=== PATIENT | female | born 1935 | race Caucasian/White ===

== ENCOUNTER 2016-02-16 10:23 | Inpatient (IN) | payer OTHER ==
[~2016-02-16] VITALS: Ht 154.9 cm; Wt 92.1 kg
--- NOTE | ~2016-02-16 | HC ---
[facility] [place] [address] CONSULTATION Name: CHAVEZ AHN Room #: 201-P [facility] IN M.R.#: [id number] Admission: 02/16/16 Attend Phys: Halie Moralez MD Discharge: 02/17/16 Date of : 39 Report #: [id number] THIS REPORT FOR: //name// CC: Halie Osborn DATE OF SERVICE: 02/16/2016 REASON FOR CONSULTATION: Atrial fibrillation, RVR. HISTORY OF PRESENT ILLNESS: This is a very pleasant 80-year-old female patient who presented to the Emergency Room with what she describes as hypertensive crisis. The patient stated that she normally has had her blood pressure fairly well controlled. On the day of admission, she developed sudden onset of chest heaviness, clammy sensation in her skin, and some shivering. The patient states she just did not feel appropriate and felt right for the last several weeks. She has not had any chest pain, pressure, tightness, heaviness prior to the day of admission, has not had any significant dizziness, lightheadedness, or other symptomatology. This morning, she had a blood pressure checked three times and stated that every time it increased although the numbers are not available to me. Her blood sugar was 167 at the time of these episodes. She presented for assessment and evaluation in the Emergency Room. She does have diabetes history and is scheduled to see endocrinology next week. Upon further questioning, she has had no rest symptomatology. She had no dependent or nondependent edema. She has no fever, chills, night sweats, or exertion symptoms or rest symptoms prior to this episode. PAST MEDICAL HISTORY: Significant for: 1. Hypertension. 2. Degenerative joint disease. 3. Diabetes mellitus. ALLERGIES: CEFUROXIME, BIAXIN, HYDROCHLOROTHIAZIDE, LISINOPRIL, METHYLPREDNISOLONE, TETRACYCLINE, AMOXICILLIN, BENAZEPRIL. PAST SURGICAL HISTORY: Noted and reviewed in the chart. MEDICATIONS: Prednisone 20, aspirin, Zyrtec, Singulair, Pepcid, omega 3, vitamin B, and Glucophage. She has been on Lasix, verapamil, ____ once a day, atenolol, Centrum tablets, calcium, glucosamine, and biotin. SOCIAL HISTORY: The patient is . Does not smoke or consume alcohol. Does not follow a particular exercise regimen or dietary restriction. [address] [address] CONSULTATION Name: JIMYCHAVEZ [facility] Room #: 201-P [facility] IN M.R.#: [id number] Admission: 02/16/16 Attend Phys: Halie Moralez MD Discharge: 02/17/16 Date of : 39 Report #: [id number] REVIEW OF SYSTEMS: Except for symptoms as previously mentioned and those commensurate with comorbid state, the 10-point review of system is negative. PHYSICAL EXAMINATION: GENERAL: Well-nourished white female, resting comfortably in mild distress. VITAL SIGNS: She is tachycardiac and slightly hypertensive. HEENT: Normocephalic, atraumatic. Pupils are equal, round, reactive to light and accommodation. Extraocular muscles are intact. Sclerae and conjunctivae are anicteric. NECK: JVD is normal. Carotid upstrokes are bilaterally symmetrical. No bruits are heard. No thyromegaly. No lymphadenopathy. LUNGS: Clear to auscultation. No wheezes, rhonchi or crackles. No CVA tenderness. CARDIAC: Demonstrates a regular rhythm. Normal first and second heart sounds. No ventricular or atrial gallops, no rubs noted. No murmurs. No lifts or heaves, PMI normal. ABDOMEN: Soft, nontender, nondistended. Normal bowel sounds. EXTREMITIES: Without cyanosis, clubbing or edema. Distal pulses are intact. DTR symmetrical. NEUROLOGIC: Cranial nerves 2-12 are grossly normal and symmetrical. PSYCHIATRIC: Alert, oriented with normal affect. SKIN: Warm and dry. ELECTROCARDIOGRAM: Atrial fibrillation, rapid ventricular response, nonspecific ST-T wave changes. This is new from prior ECGs of 2013. LABORATORY DATA: Demonstrates a BUN and creatinine of 16 and 0.8. Troponin is less than 0.04. H and H are 14.3 and 41.9 with a platelet count of 215,000. RADIOLOGIC: Chest x-ray failed to demonstrate any acute changes although there is some mild increased vascularity noted. IMPRESSION: 1. Atrial fibrillation with rapid ventricular response, appears to be new onset. The patient is a CHADS-VASc 4 and I am going to anticoagulate rate control with IV diltiazem. She has been on Verelan but I have noted in the past that the Verelan loses its effectiveness towards the later part of its dosing interval. In view of this, I am going to switch it to the generic SR 180 b.i.d. and see if we can control rate that way. We will rule out for myocardial infarction. The fact that she is not having any acute EKG changes, etc., but she does have risk factors, we will set her up for an outpatient perfusion scan, echocardiography, etc. and follow up with ____ who she has seen in the past. 2. Diabetes mellitus as per primary care. 3. Hypertension. We are going to discuss nonpharmacologic treatment of [address] [address] CONSULTATION Name: CHAVEZ AHN [facility] Room #: 201-P [facility] IN M.R.#: [id number] Admission: 02/16/16 Attend Phys: Halie Moralez MD Discharge: 02/17/16 Date of : 39 Report #: [id number] hypertension with the patient. She does voice understanding. We will monitor blood pressures carefully to make sure that we can bring them under control. <ELECTRONICALLY SIGNED> By: Bill Atwood MD 02/20/162003 1255 48 Bill Atwood MD /nt
--- NOTE | ~2016-02-16 | EKG ---
[place] [address] [facility] [employer] [employer] [place] [address] ELECTROCARDIOGRAM REPORT Name: CHAVEZ AHN Room #: 201-P [facility] IN M.R.#: [id number] Admission: 02/16/16 Attend Phys: Halie Moralez MD Discharge: 02/17/16 Date of : 39 Report #: [id number] THIS REPORT FOR: //name// [facility] ED Test Date: 2016-02-16 Test Time: 10:30:16 Pat Name: CHAVEZ AHN Department: Room: 201 Gender: F Insole Buffer: JABARI : 1935 Requested By: Newton Main Order Number: [id number] MD: Supa Murillo Measurements Intervals [place] Rate: 133 P: [place]: QRS: -11 QRSD: 82 T: 110 QT: 323 QTc: 481 Interpretive Statements Atrial fibrillation LVH with secondary repolarization abnormality ST depression, probably rate related Borderline prolonged QT interval No previous ECG available for comparison Electronically Signed On 02-19-2016 8:21:20 [employer] by Supa Murillo [email or web address] <ELECTRONICALLY SIGNED> By: Supa Murillo MD, [facility] 02/19/16 0821 1030 1030 Supa Murillo MD, [facility] /EPI
[~2016-02-16 10:23] MED LIST: ADULT LOW DOSE81 MG PO; ATENOLOL 50 MG50 M1 PO; CALICUM 500+D1 EACH PO; CENTRUM TABLET1 EACH PO; FAMOTIDINE PO; GLUCOSAMINE-CH1 EA19 PO; LASIX 20 MG TAB20 MG PO; NABUMETONE 750750 M1 PO; PREDNISONE 10 M10 M1 PO; PREDNISONE 20 M20 MG PO; PREDNISONE50 MG PO; PROAIR HFA8.5 GM IH; VERAPAMIL HCL360 MG PO; ZYRTEC10 M2 PO
[2016-02-16 10:24] VITALS: BP 177/95
[2016-02-16] MEDS ORDERED: HARD NAILS2500 MCG PO (10:36)
[2016-02-16] MEDS ORDERED: SINGULAIR 10 MG10 M1 PO (10:36)
[2016-02-16] MEDS ORDERED: OMEGA-31000 M1 PO (10:36)
[2016-02-16] MEDS ORDERED: VITAMIN B-12500 MCG PO (10:37)
[2016-02-16] MEDS ORDERED: METFORMIN HCL500 MG PO (10:37)
[2016-02-16 11:07] LABS: ABSOLUTE NEUTROPHILS 4.1 thou/uL (1.4-8.2); HEMATOCRIT 41.9 % (37.0-47.0); HEMOGLOBIN 14.3 gm/dL (12.0-15.0); LYMPHOCYTES 20.8 % (24.0-44.0); MCH 30.5 pg (26.0-34.0); MCV 89.7 fL (80.0-100.0); MONOCYTES 10.9 % (1.0-8.0); PLATELET COUNT 215 thou/uL (150-400); POLYS 64.3 % (36.0-66.0); RBC 4.67 mil/uL (4.20-5.00); RDW 13.3 % (10.5-14.5); WBC 6.4 thou/uL (4.0-11.0)
[2016-02-16 11:08] LABS: MANUAL DIFF NO
[2016-02-16 11:11] LABS: ANION GAP 11 mmol/L (7-16); BUN 16 mg/dL (7-18); CALCIUM 9.3 mg/dL (8.5-10.1); CHLORIDE 104 mmol/L (98-107); CO2 26 mmol/L (21-32); CREATININE 0.8 mg/dL (0.6-1.3); GLUCOSE 180 mg/dL (70-99); POTASSIUM 3.9 mmol/L (3.5-5.1); SODIUM 141 mmol/L (136-145)
[2016-02-16 11:14] LABS: URINE BILIRUBIN NEGATIVE (Negative); URINE BLOOD NEGATIVE (Negative); URINE COLOR YELLOW; URINE GLUCOSE-RANDOM* NEGATIVE (Negative); URINE KETONES NEGATIVE (Negative); URINE NITRITE NEGATIVE (Negative); URINE PROTEIN (DIPSTICK) NEGATIVE (Negative); URINE SPECIFIC GRAVITY 1.015 (1.003-1.035); URINE UROBILINOGEN 0.2 E.U./dl (0.2-1.0)
[2016-02-16 11:29] LABS: TROPONIN-I < 0.04 ng/mL (<0.04-0.07)
[2016-02-16 12:44] VITALS: BP 136/84
[2016-02-16 13:15] VITALS: BP 135/49
[2016-02-16 19:50] VITALS: BP 154/60
[2016-02-16] MEDS ORDERED: TENORMIN50 MG PO (22:07)
[2016-02-16 23:58] VITALS: BP 155/67
[2016-02-17 03:44] VITALS: BP 121/51
[2016-02-17 04:01] LABS: HEMATOCRIT 37.7 % (37.0-47.0); HEMOGLOBIN 12.5 gm/dL (12.0-15.0); MCH 30.3 pg (26.0-34.0); MCHC 33.1 % (28.0-37.0); MCV 91.6 fL (80.0-100.0); RBC 4.12 mil/uL (4.20-5.00); RDW 13.3 % (10.5-14.5); WBC 6.8 thou/uL (4.0-11.0)
[2016-02-17 05:27] LABS: CALCIUM 8.8 mg/dL (8.5-10.1); CREATININE 0.7 mg/dL (0.6-1.3); POTASSIUM 3.8 mmol/L (3.5-5.1)
[2016-02-17 07:51] VITALS: BP 152/57
[2016-02-17] MEDS ORDERED: VERAPAMIL SR 1120 MG PO (08:32)
[2016-02-17] MEDS ORDERED: LASIX 20 MG TAB20 MG PO (08:33)
[2016-02-17] MEDS ORDERED: BIOTIN5 MG PO (08:34)
[2016-02-17] MEDS ORDERED: GLUCOSAMINE HC500 MG (08:35)
[2016-02-17 10:08] LABS: TSH 0.84 uIU/mL (0.450-4.500)
[2016-02-17 12:22] VITALS: BP 159/72
[2016-02-17 13:06] LABS: CREATININE (ALB/CR) < 20.0 mg/dL (Not Estab.); MICROALB:CREAT > 418.0 (0.0-30.0); MICROALBUMIN-RND URINE 83.6 ug/mL (Not Estab.)
[2016-02-17] MEDS ORDERED: ELIQUIS5 MG PO (14:18)
[2016-02-17] MEDS ORDERED: VERAPAMIL HCL180 M4 PO (14:18)
[2016-02-17 14:44] VITALS: BP 159/72
[2016-02-17 15:56] VITALS: BP 159/72
[2016-02-17 18:32] VITALS: BP 159/72
[2016-02-17 21:05] LABS: GLYCOHEMOGLOBIN (HGB A1C) 7.3 % (4.8-5.6)
== END 2016-02-17 18:33 | disposition home or self-care (01) | DRG 309 ==
LOC: ER 10:23 → EROBS 11:54 → 2N 12:45
PROVIDERS: Emergency Medicine; Internal Medicine Endocrinology, Diabetes & Metabolism
DX: I48.1 Persistent atrial fibrillation (principal); D68.69 Other thrombophilia; M48.00 Spinal stenosis, site unspecified; I10 Essential (primary) hypertension; I25.10 Atherosclerotic heart disease of native coronary artery without angina pectoris; E11.9 Type 2 diabetes mellitus without complications; Z88.8 Allergy status to other drugs, medicaments and biological substances; Z88.1 Allergy status to other antibiotic agents; Z79.899 Other long term (current) drug therapy; Z79.82 Long term (current) use of aspirin; Z82.49 Family history of ischemic heart disease and other diseases of the circulatory system; Z83.3 Family history of diabetes mellitus
CPT/HCPCS: 10081

== ENCOUNTER → 2016-08-07 | Outpatient (CLI) | payer OTHER ==
[~2016-08-07] MED LIST changes: +BIOTIN5 MG PO; +ELIQUIS5 MG PO; +GLUCOSAMINE HC500 MG; +HARD NAILS2500 MCG PO; +METFORMIN HCL500 MG PO; +OMEGA-31000 M1 PO; +SINGULAIR 10 MG10 M1 PO; +TENORMIN50 MG PO; +VERAPAMIL HCL180 M4 PO; +VERAPAMIL SR 1120 MG PO; +VITAMIN B-12500 MCG PO
== END ==
LOC: RAD 07-29 16:34
DX: Z12.31 Encounter for screening mammogram for malignant neoplasm of breast (principal)

== ENCOUNTER → 2017-08-12 | Outpatient (CLI) | payer OTHER | LOC: RAD 01:34 | DX: Z12.31 Encounter for screening mammogram for malignant neoplasm of breast (principal) ==

== ENCOUNTER → 2018-08-16 | Outpatient (CLI) | payer OTHER | LOC: RAD 03:54 | DX: Z12.31 Encounter for screening mammogram for malignant neoplasm of breast (principal) ==

== ENCOUNTER → 2019-03-22 | Outpatient (CLI) | payer OTHER | LOC: SJCVC 14:40 | DX: I48.0 Paroxysmal atrial fibrillation (principal); R94.31 Abnormal electrocardiogram [ECG] [EKG]; I10 Essential (primary) hypertension; E78.5 Hyperlipidemia, unspecified; E11.9 Type 2 diabetes mellitus without complications; E66.9 Obesity, unspecified; Z79.01 Long term (current) use of anticoagulants; Z87.891 Personal history of nicotine dependence; Z79.899 Other long term (current) drug therapy ==

== ENCOUNTER → 2019-08-03 | Outpatient (CLI) | payer OTHER | LOC: SJCVC 11:35 | PROVIDERS: ATTEND Internal Medicine | DX: R94.31 Abnormal electrocardiogram [ECG] [EKG] (principal); I48.0 Paroxysmal atrial fibrillation; I10 Essential (primary) hypertension; E78.5 Hyperlipidemia, unspecified; E11.9 Type 2 diabetes mellitus without complications; Z79.01 Long term (current) use of anticoagulants; Z90.49 Acquired absence of other specified parts of digestive tract; Z79.899 Other long term (current) drug therapy; Z87.891 Personal history of nicotine dependence ==

== ENCOUNTER → 2019-09-02 | Outpatient (CLI) | payer OTHER | LOC: LAB 12:33 | PROVIDERS: ATTEND Anesthesiology | DX: Z01.812 Encounter for preprocedural laboratory examination (principal); Z11.59 Encounter for screening for other viral diseases ==

== ENCOUNTER → 2019-09-21 | Outpatient (CLI) | payer OTHER | LOC: RAD 12:07 | PROVIDERS: ATTEND Obstetrics & Gynecology | DX: Z12.31 Encounter for screening mammogram for malignant neoplasm of breast (principal) ==

== ENCOUNTER → 2020-02-06 | Outpatient (CLI) | payer OTHER | LOC: SJCVC 13:26 | PROVIDERS: ATTEND Internal Medicine | DX: R94.31 Abnormal electrocardiogram [ECG] [EKG] (principal); I48.0 Paroxysmal atrial fibrillation; I10 Essential (primary) hypertension; E78.5 Hyperlipidemia, unspecified; E11.9 Type 2 diabetes mellitus without complications; Z79.01 Long term (current) use of anticoagulants; Z79.899 Other long term (current) drug therapy; Z87.891 Personal history of nicotine dependence ==

== ENCOUNTER → 2020-09-06 | Outpatient (CLI) | payer OTHER | LOC: SJCVCIMAG 08-09 07:53 | PROVIDERS: ATTEND Internal Medicine | DX: I08.1 Rheumatic disorders of both mitral and tricuspid valves (principal); R00.1 Bradycardia, unspecified; I11.9 Hypertensive heart disease without heart failure; I48.0 Paroxysmal atrial fibrillation; E78.5 Hyperlipidemia, unspecified; E11.9 Type 2 diabetes mellitus without complications; E66.9 Obesity, unspecified; Z90.49 Acquired absence of other specified parts of digestive tract; Z88.2 Allergy status to sulfonamides; Z88.8 Allergy status to other drugs, medicaments and biological substances; Z79.01 Long term (current) use of anticoagulants; Z79.84 Long term (current) use of oral hypoglycemic drugs; Z79.899 Other long term (current) drug therapy; Z87.891 Personal history of nicotine dependence; Z82.49 Family history of ischemic heart disease and other diseases of the circulatory system ==

== ENCOUNTER → 2020-10-10 | Outpatient (CLI) | payer OTHER | LOC: BC 13:11 | DX: Z12.31 Encounter for screening mammogram for malignant neoplasm of breast (principal) ==